=== PATIENT | female | born 1975 | race Two or more races ===

== ENCOUNTER → 2024-06-05 | Outpatient (CLI) | payer MEDICAID, SELFPAY ==
--- NOTE | 2024-06-05 | XR_ITS ---
Examination: Abdomen 2 views Technique one AP upright AP supine abdomen 2 views Exam date and time: June 05, 1999 2535 hours INDICATIONS: Sharp abdominal pain today. FINDINGS: 6 mm calculus lower pole left kidney No ureteral calculi Nonobstructive bowel gas pattern IMPRESSION: 6 mm left renal calculus
== END | disposition home or self-care (01) ==
LOC: CDIM 10:44
PROVIDERS: PCP Family Medicine; Referring Provider Urology; Visit Provider Urology
DX: N20.0 Calculus of kidney (principal)
CPT/HCPCS: 74019

== ENCOUNTER 2024-10-16 17:39 | Emergency (ER) | payer MEDICAID, SELFPAY ==
--- NOTE | 2024-10-16 17:50 | EKG_ITS ---
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
--- NOTE | 2024-10-16 17:51 | EDNOTE_ITS ---
ED Anxiety RME/HPI General Chief Complaint: General Adult/Misc Complain Stated Complaint: LOW BLOOD SUGAR Time Seen by Provider: 10/16/24 17:46 Arrival date/time: 10/16/24 17:39 RME / HPI RME / HPI narrative: 49-year-old female patient with significant history of hypoglycemia in the past, she is not diabetic,anxiety came in for evaluation regarding low blood sugar. Family called 911 after patient was noted to be lethargic. When the EMS arrived patient blood sugar was noted to be 72. Patient told me that every time her blood sugar drop she developed anxiety-like symptoms. Currently patient is alert oriented x 3 been given oral glucose. Last blood sugar was noted to be above 80 right now. Denies any chest pain abdominal pain vomiting diarrhea or any complaints. Related Data Previous Rx's ?Medication ?Instructions ?Recorded cephalexin 500 mg capsule (Keflex) 500 mg PO TID #21 c aps 03/31/18 ibuprofen 600 mg tablet 600 mg PO QID PRN pain #40 t abs 03/31/18 cefuroxime axetil 500 mg tablet 500 mg PO BID #14 tabs 10/16/24 ferrous sulfate 325 mg (65 mg 325 mg PO BID #60 tabs 0 10/16/24 iron) tablet Allergies Allergy/AdvReac Type Severity Reaction Status Date / Time No Known Allergies Allergy Verified 10/16/24 18:44 Review of Systems Review of Systems Narrative Review of Systems: Review of system reviewed and within normal limits except mentioned in HPI ED Exam Narrative Physical exam: VITAL SIGNS: Reviewed. GENERAL APPEARANCE: Alert and interactive, follows commands, no acute distress, HEAD AND FACE: Non-traumatic. ENT: PERRL, pink conjunctivitis, eyelid no trauma, Mucous membrane moist. NECK: Supple, nontender, no nuchal rigidity. CHEST: No tenderness, no crepitus, no paradoxical movement, no retractions. LUNGS: Clear, well ventilated, symmetric, no rales, no wheezing, no ronchi, no stridor, good breath sounds bilaterally. HEART: Regular rate, regular rhythm, no murmur, no gallops. ABDOMEN: Soft, positive bowel sounds, nondistended, no guarding, nontender, no rebound, no masses, RECTAL: Deferred. GENITAL: Deferred. NEUROLOGICAL: Gross motor function intact sensory function intact, Appropriate for age. MUSCULOSKELETAL: low back nontender, full range of motion. EXTREMITIES: Nontender, full range of motion. SKIN: Color pink, dry, no rash, no lacerations, no abrasions, no contusions. LYMPHATICS: Deferred. Course Quality Measures none Orders Category Date Time Status EKG (ED ONLY) *Do not use* NOW Care 10/16/24 17:50 Active Diet Regular Diet 10/17/24 Breakfast Active EKG (ED Only) Stat Exams 10/16/24 17:50 Ordered CBC Stat Lab 10/16/24 17:50 Ordered Comprehensive Metabolic Panel Stat Lab 10/16/24 17:50 Ordered Partial Thromboplastin Time Stat Lab 10/16/24 17:50 Ordered Prothrombin Time with INR Stat Lab 10/16/24 17:50 Ordered Troponin I Stat Lab 10/16/24 17:50 Ordered Urinalysis, C/S if Indicated Stat Lab 10/16/24 17:50 Ordered Anxiety MDM Narrative MDM Narrative: 49-year-old female patient with significant history of hypoglycemia in the past, she is not diabetic,anxiety came in for evaluation regarding low blood sugar. Family called 911 after patient was noted to be lethargic. When the EMS arrived patient blood sugar was noted to be 72. Patient told me that every time her blood sugar drop she developed anxiety-like symptoms. Currently patient is alert oriented x 3 been given oral glucose. Last blood sugar was noted to be above 80 right now. Denies any chest pain abdominal pain vomiting diarrhea or any complaints. EKG as interpreted by me shows sinus rhythm, ventricular rate of 80 bpm, no ST segment elevation or depression noted. Patient's workup today significant for a hemoglobin of 8.2 hematocrit of 26.6 platelets normal the rest of the labs unremarkable. Urinalysis + UTI Patient data External records reviewed:: None Clinical information provided by:: patient and family Social determinants that could affect healthcare access:: none Patient has the following chronic illnesses:: See results MDM history of hypoglycemia, anxiety How is presenting disease/condition affected by chronic disease/condition?: exa cerbated by Evaluation data The following diagnostics were reviewed and interpreted by me:: lab results and EKG tracing(s) Lab and/or radiology exams considered but not ordered:: None Interpretation Summary: See results MDM Medications / Prescriptions Medications or Prescriptions considered but not ordered:: None Medication administrations:: Keflex Consultations Consultation(s) initiated? (list below): No Diagnosis Differential diagnosis anxiety: panic disorder, acute anxiety and other (Hypoglycemia, UTI) Most likely diagnosis given after review of the tests above:: Hypoglycemia, UTI Admission Indicated Admission indicated?: not indicated Admission Request Was there a request for admission?: No Disposition Plan Disposition Plan: Discharge Discharge Attestation Discharge Attestation: The patient and all family members were given an opportunity to ask questions and understood the discharge instructions. Discharge instructions specifically effects, indications for sooner follow up or return to the emergency department, and the expected course of current diagnosis. Patient condition: Stable Discharge Plan Plan Patient Disposition: HOME (Self Care) Discharge Disposition comment: Stable Prescriptions/Referrals Prescriptions/Med Rec: New ferrous sulfate 325 mg (65 mg iron) tablet 325 mg PO BID Qty: 60 0RF cefuroxime axetil 500 mg tablet 500 mg PO BID Qty: 14 0RF No Action cephalexin [Keflex] 500 mg capsule 500 mg PO TID Qty: 21 0RF ibuprofen 600 mg tablet 600 mg PO QID PRN (Reason: pain) Qty: 40 0RF Referrals: Florencio Sheth MD [Primary Care Provider] - In 1 week Problem List Clinical Impression: Anemia, Hypoglycemia, UTI (urinary tract infection) Patient/Caregiver Discharge Instructions Discharge Activity: activity as tolerated Education Materials: Anemia Additional Instructions: Thank you for the opportunity for serving you today. You are stable for discharged . You are advised to: Follow-up with your PCP in 1 to 2 days Return to ED for worsening of symptoms Increase oral fluids Take medication as prescribed Print Language: Cypriot Stand Alone Forms: Cornelia Award Info., Patient Portal Info Letter JANICE/PERFECTO Supervising Physician JANICE/PERFECTO Supervising Physician: MD Jane
[2024-10-16 17:52] VITALS: BP 173/82; PULSE 73; RESP 20; TEMP 36.7; O2SAT 100
[2024-10-16 17:53] VITALS: BMI 34.9
[2024-10-16 18:41] VITALS: PULSE 78; RESP 20; O2SAT 98
[2024-10-16 19:03] LABS: Basophils % (Auto) 1 % (0-2.5); Eosinophils # (Auto) 0.2 Thou/mm3 (0.0-0.5); Eosinophils % (Auto) 3 % (0-10); Hematocrit 26.6 % (36.0-46.0); Immature Granulocytes % (Auto) 0 % (0-0); Immature Granulocytes Auto 0.02 Thou/mm3 (0.00-0.00); Lymphocytes # (Auto) 1.9 Thou/mm3 (1.0-4.8); Lymphocytes % (Auto) 30 % (10-50); Mean Corpuscular HGB Conc 30.8 g/dl (31.0-37.0); Mean Corpuscular Volume 75 fL (80-100); Monocytes # (Auto) 0.5 Thou/mm3 (0.0-0.8); Monocytes % (Auto) 8 % (0-12); Neutrophils # (Auto) 3.7 Thou/mm3 (1.8-7.7); Neutrophils % (Auto) 58 % (37-80); Nucleated Red Blood Cell # 0.02 Thou/mm3 (0.00-0.00); Nucleated Red Blood Cell % 0 /100 WBC (0); Platelet Count 311 Thou/mm3 (140-440); RDW Standard Deviation 47.4 fL (36.4-46.3); Red Blood Count 3.57 Miln/mm3 (4.00-5.20); White Blood Count 6.3 Thou/mm3 (3.6-11.0)
[2024-10-16 19:04] LABS: Hemoglobin 8.2 g/dL (12.0-16.0)
[2024-10-16 19:06] LABS: Partial Thromboplastin Time 23.1 Seconds (22.0-36.0); Prothrombin Time 10.6 Seconds (9.0-12.2)
[2024-10-16 19:23] LABS: Collection Type, Urine Clean Catch
[2024-10-16 19:29] LABS: Alanine Aminotransferase 17 U/L (10-49); Albumin, Serum 3.7 gm/dL (3.5-5.0); Albumin/Globulin Ratio 1.3 (1.2-2.2); Alkaline Phosphatase 64 U/L (46-116); Anion Gap 9 (7-16); Aspartate Amino Transferase 26 U/L (0-34); BUN/Creatinine Ratio 10 Ratio (12-20); Bilirubin,Total 0.4 mg/dL (0.3-1.2); Blood Urea Nitrogen 8 mg/dL (9-23); Calcium 8.8 mg/dL (8.3-10.6); Carbon Dioxide 25.1 mMol/L (20.0-31.0); Chloride 102 mMol/L (98-107); Creatinine (Component) 0.8 mg/dL (0.6-1.3); Estimated Creatinine Clearance 98.2 mL/min (>60); Globulin 2.8 gm/dL (2.3-3.5); Glucose 120 mg/dL (74-106); Osmolality,Calculated 271 (275-295); Potassium 3.5 mMol/L (3.4-5.1); Sodium 136 mMol/L (136-145); Total Protein 6.5 gm/dL (5.7-8.2); Troponin I < 0.002 ng/mL (0.0-0.045); eGFR > 60 See Note
[2024-10-16 20:33] LABS: Bacteria,Urine Rare; Bilirubin,Urine Negative (Negative); Blood,Urine Negative (Negative); Clarity,Urine Clear (Clear/Hazy); Color,Urine Yellow (Lt Yel-Yel); Glucose, Urine Negative (Negative); Ketones,Urine Negative (Negative); Leukocyte Esterase,Urine Positive (Negative); Nitrite,Urine Negative (Negative); PH,Urine 6.5 (5.0-7.0); Protein,Urine 1+ (Neg - Trace); RBC,Urine 3 /hpf (0-3); Specific Gravity,Urine 1.016 (1.001-1.035); Squamous Epithelial Cell,Urine 1 /hpf (0-5); WBC,Urine 68 /hpf (0-5)
[2024-10-16 20:34] LABS: Culture Indicated,Urine Yes
[2024-10-16] MEDS: cephALEXin 250 MG CAPSULE 500 MG PO (21:00)
[2024-10-16 21:06] VITALS: BP 167/84; PULSE 75; RESP 18; O2SAT 100
== END 2024-10-16 21:10 | disposition home or self-care (01) ==
PROVIDERS: Nurse Practitioner Family; Emergency Provider Emergency Medicine; PCP Family Medicine
DX: E16.2 Hypoglycemia, unspecified (principal); D64.9 Anemia, unspecified; N39.0 Urinary tract infection, site not specified; R94.31 Abnormal electrocardiogram [ECG] [EKG]
CPT/HCPCS: 36415; 80053; 81001; 84484; 85025; 85610; 85730; 87077; 87086; 87186; 93005; 99283; A9270